=== PATIENT | female | born 1955 ===

== ENCOUNTER → 2023-11-12 | Day surgery (SDC) | payer OTHER ==
[2023-11-10 10:53] LABS: PH,URINE 6.5 (5.0-8.0); URINE APPEARANCE Clear; URINE BILIRRUBIN Negative (NEGATIVE); URINE BLOOD Negative; URINE COLOR Yellow; URINE GLUCOSE Negative (NEGATIVE); URINE KETONE Negative (NEGATIVE); URINE LEUKOCYTE Trace; URINE NITRATE Negative; URINE PROTEIN Negative (NEGATIVE); URINE UROBILINOGEN 0.2 E.U./dl
[2023-11-10 10:57] LABS: URINE BACTERIA 20.1 uL (0.0-1933); URINE EPITHELIAL CELLS 3.7 uL (0.0-38.8); URINE WBC 11.1 uL (0.0-23.2)
[2023-11-10 11:08] LABS: HEMATOCRIT 37.3 % (36.0-45.00); HEMOGLOBIN 12.9 g/dL (12.0-15.00); MEAN CELL VOLUME 91.1 fL (80.00-100.00); MEAN CORPUSCULAR HEMOGLOBIN 31.6 pg (27.00-32.0); MEAN CORPUSCULAR HGB CONC 34.7 g/dl (32.0-36.0); PLATELET COUNT 190 K/uL (150-450); RED BLOOD COUNT 4.09 M/uL (4.00-6.00); RED CELL DISTRIBUTION WIDTH 13.2 % (11.5-14.5)
[2023-11-10 11:33] LABS: INR 1.04; PROTHROMBIN TIME 11.3 SECONDS (9.0-11.5)
[2023-11-10 11:37] LABS: URINE RBC 1.2 uL (0.0-20.8)
[2023-11-10 11:39] LABS: ALBUMIN 3.4 gm/dL (3.4-5.0); BILIRUBIN TOTAL 0.9 mg/dL (0.3-1.2); CALCIUM 9.5 mg/dL (8.5-10.1); CREATININE SERUM 0.86 mg/dL (0.55-1.02); GFR 66.22; GLOBULINA 4.2 G/DL (2.4-3.5); POTASSIUM 4.35 mEq/L (3.5-5.1); TOTAL PROTEIN 7.6 gm/dL (6.4-8.2)
[~2023-11-12] VITALS: Ht 160 cm; Wt 84.4 kg
[~2023-11-12] MED LIST: CEFAZOLIN SODIUM 1,000 MG VIAL ONE; DEXAMETHASONE SODIUM PHOSPHATE 4 MG/ML VIAL ONE; FEXMID7.5 MG PO; HORIZANT300 MG PO; KETO10TA2 PO; KETOROLAC TROMETHAMINE 30 MG VIAL ONE; LIDOCAINE HCL 1%/EPINEPHRINE 20ML VIAL IJ ONE; SUGAMMADEX SODIUM 200 MG/2 ML VIAL IV ONE
== END | disposition home or self-care (01) ==
LOC: ADM 11-10 09:00 → CIR.AMB 09:00
PROVIDERS: ATTEND Orthopaedic Surgery
DX: S42.231A 3-part fracture of surgical neck of right humerus, initial encounter for closed fracture (principal); S46.121A Laceration of muscle, fascia and tendon of long head of biceps, right arm, initial encounter
CPT/HCPCS: 23615; 23430; L8699